=== PATIENT | female | born 2000 | race Caucasian/White ===

== ENCOUNTER 2022-04-21 18:47 | Inpatient (IN) | payer OTHER ==
[~2022-04-21] VITALS: Ht 152.4 cm; Wt 70.3 kg
[2022-04-21] MEDS ORDERED: PRENATAL TABLE1 EAC1 PO (19:28)
== END 2022-04-25 13:00 | disposition home or self-care (01) | DRG 832 ==
LOC: OBS/DEL 18:47 → LDR 21:10
PROVIDERS: ADMIT Obstetrics & Gynecology Obstetrics; ATTEND Obstetrics & Gynecology Obstetrics
PROC: 4A1HXCZ Monitoring of Products of Conception, Cardiac Rate, External Approach (ICD-10-PCS; principal; 2022-04-21)
DX: O60.03 Preterm labor without delivery, third trimester (principal); O23.43 Unspecified infection of urinary tract in pregnancy, third trimester; Z3A.36 36 weeks gestation of pregnancy; Z20.822 Contact with and (suspected) exposure to COVID-19

== ENCOUNTER 2022-05-06 10:37 | Inpatient (IN) | payer OTHER ==
[~2022-05-06] VITALS: Ht 154.9 cm; Wt 68.5 kg
[~2022-05-06 10:37] MED LIST: PRENATAL TABLE1 EAC1 PO
[2022-05-06] MEDS ORDERED: CLARITIN10 MG (15:59)
== END 2022-05-08 15:55 | DRG 807 ==
LOC: LDR 10:37 → OB/GYN 05-07 12:28
PROVIDERS: ADMIT Obstetrics & Gynecology Obstetrics; ATTEND Obstetrics & Gynecology Obstetrics
PROC: 10E0XZZ Delivery of Products of Conception, External Approach (ICD-10-PCS; principal; 2022-05-06)
PROC: 4A1HXCZ Monitoring of Products of Conception, Cardiac Rate, External Approach (ICD-10-PCS; 2022-05-06)
DX: O80 Encounter for full-term uncomplicated delivery (principal); Z37.0 Single live birth; Z3A.38 38 weeks gestation of pregnancy; Z20.822 Contact with and (suspected) exposure to COVID-19

== ENCOUNTER 2023-05-15 17:39 | Inpatient (IN) | payer OTHER ==
[~2023-05-15] VITALS: Ht 154.9 cm; Wt 68.0 kg
[~2023-05-15 17:39] MED LIST changes: +CLARITIN10 MG
[2023-05-15] MEDS ORDERED: MEPERIDINE HCL/PF 25 MG/ML VIAL IV ONE (18:00)
[2023-05-15] MEDS ORDERED: RINGERS SOLUTION,LACTATED 1,000 ML IV SCH (18:00)
[2023-05-15] MEDS ORDERED: AMPICILLIN SODIUM 2,000 MG VIAL IV ONE (18:00)
[2023-05-15] MEDS ORDERED: CHLORHEXIDINE GLUCONATE 120 ML BOTTLE TOP ONE (18:05)
[2023-05-15] MEDS ORDERED: ERYTHROMYCIN BASE 1 GM TUBE OP ONE (18:05)
[2023-05-15] MEDS ORDERED: OXYTOCIN 10 UNIT/ML (10ML) IV ONE (18:15)
[2023-05-15] MEDS ORDERED: PROMETHAZINE HCL 25 MG/ML AMPUL IV ONE (18:15)
[2023-05-15 18:23] LABS: PH,URINE 5.5 (5.0-8.0); URINE APPEARANCE Turbid; URINE BILIRRUBIN Negative (NEGATIVE); URINE BLOOD Small; URINE COLOR Dark Yellow; URINE GLUCOSE Negative (NEGATIVE); URINE LEUKOCYTE Large; URINE NITRATE Positive; URINE PROTEIN 30 (NEGATIVE)
[2023-05-15 18:26] LABS: URINE RBC 5.7 uL (0.0-20.8)
[2023-05-15 18:28] LABS: HEMOGLOBIN 9.6 g/dL (12.0-15.00); MEAN CELL VOLUME 73.4 fL (80.00-100.00); MEAN CORPUSCULAR HEMOGLOBIN 23.6 pg (27.00-32.0); MEAN CORPUSCULAR HGB CONC 32.1 g/dl (32.0-36.0); PLATELET COUNT 159 K/uL (150-450); RED BLOOD COUNT 4.09 M/uL (4.00-6.00); RED CELL DISTRIBUTION WIDTH 15.4 % (11.5-14.5)
[2023-05-15 18:30] LABS: URINE BACTERIA > 9821.2 uL (0.0-1933)
[2023-05-15 18:42] LABS: ALBUMIN 2.8 gm/dL (3.4-5.0); BILIRUBIN TOTAL 0.61 mg/dL (0.3-1.2); CALCIUM 8.9 mg/dL (8.5-10.1); CREATININE SERUM 0.49 mg/dL (0.55-1.02); GFR 157.92; GLOBULINA 4.6 G/DL (2.4-3.5); POTASSIUM 3.97 mEq/L (3.5-5.1); TOTAL PROTEIN 7.4 gm/dL (6.4-8.2)
[2023-05-15] MEDS ORDERED: NALOXONE HCL 0.4 MG/ML AMPUL ONE (19:10)
[2023-05-15 19:14] LABS: INR < 0.93; PARTIAL THROMBOPLASTIN TIME 25.1 SECONDS (22.0-34.0); PROTHROMBIN TIME 9.8 SECONDS (9.0-11.5)
[2023-05-15] MEDS ORDERED: CARBOPROST TROMETHAMINE 250 MCG/ML AMPUL IM ONE ×2 (19:57→20:45)
[2023-05-15] MEDS ORDERED: OXYTOCIN 10 UNITS/ML VIAL IM STA (19:58)
[2023-05-15] MEDS ORDERED: IBUprofen 400 MG TABLET PO PRN (20:00)
[2023-05-15] MEDS ORDERED: ERYTHROMYCIN BASE 1 GM TUBE OP SCH (20:00)
[2023-05-15] MEDS ORDERED: CHLORHEXIDINE GLUCONATE 120 ML BOTTLE TOP SCH (20:00)
[2023-05-15] MEDS ORDERED: LIDOCAINE HCL 1% 200MG/20ML VIAL IJ SCH (20:00)
[2023-05-15] MEDS ORDERED: PRENATAL TABLE1 EAC4 PO (20:32)
[2023-05-15] MEDS ORDERED: OXYTOCIN 1,000 ML IV SCH (20:45)
[2023-05-15] MEDS ORDERED: NALOXONE HCL 0.4 MG/ML AMPUL IV ONE (20:45)
[2023-05-15] MEDS ORDERED: AMPICILLIN SODIUM 1,000 MG VIAL IV SCH (21:00)
== END 2023-05-17 16:38 | disposition home or self-care (01) | DRG 807 ==
LOC: LDR 17:39 → OB/GYN 17:39
PROVIDERS: ADMIT Obstetrics & Gynecology Obstetrics; ATTEND Obstetrics & Gynecology Obstetrics
PROC: 10E0XZZ Delivery of Products of Conception, External Approach (ICD-10-PCS; principal; 2023-05-15)
PROC: 4A1HXCZ Monitoring of Products of Conception, Cardiac Rate, External Approach (ICD-10-PCS; 2023-05-15)
DX: O80 Encounter for full-term uncomplicated delivery (principal); Z37.0 Single live birth; Z3A.40 40 weeks gestation of pregnancy; Z20.822 Contact with and (suspected) exposure to COVID-19

== ENCOUNTER 2024-06-22 01:11 | Inpatient (IN) | payer OTHER ==
[2024-06-22] VITALS (11 sets, daily range): BP systolic 102–114; BP diastolic 49–66; O2SAT 100
[~2024-06-22] VITALS: Ht 157.5 cm; Wt 66.2 kg
[~2024-06-22 01:11] MED LIST changes: +PRENATAL TABLE1 EAC4 PO
[2024-06-22] MEDS ORDERED: RINGERS SOLUTION,LACTATED 1,000 ML IV SCH (01:15)
[2024-06-22] MEDS ORDERED: ERYTHROMYCIN BASE OPHT 1GM EACH TUBE OP ONE ×2 (01:43→03:45)
[2024-06-22] MEDS ORDERED: LIDOCAINE HCL 1% 10ML VIAL ONE (01:43)
[2024-06-22] MEDS ORDERED: OXYTOCIN 20 UNITS/1000ML RL PIGGYBAG IV ONE (01:43)
[2024-06-22] MEDS ORDERED: CHLORHEXIDINE GLUCONATE 120 ML BOTTLE TOP ONE (01:43)
[2024-06-22] MEDS ORDERED: OXYTOCIN 20 UNITS/500ML RL PIGGYBAG IV ONE (01:48)
[2024-06-22 01:52] LABS: HEMATOCRIT 29.2 % (36.0-45.00); HEMOGLOBIN 9.2 g/dL (12.0-15.00); MEAN CELL VOLUME 71.1 fL (80.00-100.00); MEAN CORPUSCULAR HEMOGLOBIN 22.4 pg (27.00-32.0); MEAN CORPUSCULAR HGB CONC 31.5 g/dl (32.0-36.0); RED CELL DISTRIBUTION WIDTH 17.7 % (11.5-14.5)
[2024-06-22 01:55] LABS: PLATELET COUNT 119 K/uL (150-450)
[2024-06-22] MEDS ORDERED: CEFAZOLIN SODIUM 1,000 MG VIAL IV SCH (02:00)
[2024-06-22 02:02] LABS: INR 0.94; PARTIAL THROMBOPLASTIN TIME 24.1 SECONDS (22.0-34.0); PROTHROMBIN TIME 10.3 SECONDS (9.0-11.5)
[2024-06-22 02:17] LABS: BILIRUBIN TOTAL 0.55 mg/dL (0.3-1.2); CALCIUM 8.4 mg/dL (8.5-10.1); CREATININE SERUM 0.5 mg/dL (0.55-1.02); GFR 152.89; GLOBULINA 4.2 G/DL (2.4-3.5); POTASSIUM 3.56 mEq/L (3.5-5.1); TOTAL PROTEIN 7.2 gm/dL (6.4-8.2)
[2024-06-22] MEDS ORDERED: OXYTOCIN 1,000 ML IV SCH (02:30)
[2024-06-22] MEDS ORDERED: IBUprofen 400 MG TABLET PO PRN (02:30)
[2024-06-22] MEDS ORDERED: CHLORHEXIDINE GLUCONATE 120 ML BOTTLE TOP SCH (02:30)
[2024-06-22] MEDS ORDERED: IRON325 MG PO (03:12)
[2024-06-23 00:11] VITALS: BP 95/55
[2024-06-23 08:24] VITALS: BP 109/73
[2024-06-23 17:00] VITALS: BP 109/71
[2024-06-24] VITALS: BP 117/77
[2024-06-24 10:33] VITALS: BP 111/72
== END 2024-06-24 18:02 | disposition home or self-care (01) | DRG 807 ==
LOC: LDR 01:11 → OB/GYN 01:11
PROVIDERS: ADMIT Obstetrics & Gynecology Obstetrics; ATTEND Obstetrics & Gynecology Obstetrics
PROC: 10E0XZZ Delivery of Products of Conception, External Approach (ICD-10-PCS; principal; 2024-06-22)
PROC: 4A1HXCZ Monitoring of Products of Conception, Cardiac Rate, External Approach (ICD-10-PCS; 2024-06-22)
DX: O60.14X0 Preterm labor third trimester with preterm delivery third trimester, not applicable or unspecified (principal); Z37.0 Single live birth; Z3A.35 35 weeks gestation of pregnancy